=== PATIENT | male | born 1980 | race Caucasian/White ===

== ENCOUNTER 2016-10-15 03:19 | Inpatient (IN) | payer OTHER ==
[~2016-10-15] VITALS: Ht 175.3 cm; Wt 74.2 kg
[~2016-10-15 03:19] MED LIST: ADULT LOW DOSE81 MG PO; ALPRAZOLAM0.5 MG PO; CARBAMAZEPINE200 M1 PO; COREG 12.5MG12.5 MG PO; ELIQUIS 5 MG TAB5 MG PO; FIORICET TAB1 EA PO; HUMALOG100 UNIT/1 SQ; LANOXIN TAB0.125 MG PO; LANTUS100 UNIT/1 SQ; LASIX 40 MG TAB40 MG PO; LORCET 5-325 M1 EACH PO; LORCET HD 10-31 EACH PO; MAALOX PLUS 3030 ML PO; NEURONTIN 400400 MG PO; NORVASC 5 MG TAB5 MG PO; POTASSIUM CHLO10 MEQ PO; POTASSIUM CHLO20 ME1 PO; PROTONIX40 MG PO; PROVENTIL HFA 61 INH INH; TOPAMAX50 MG PO; TOPROL XL 25 MG25 MG PO; VITAMIN D50000 UNIT PO; ZANTAC150 MG PO; ZOFRAN4 MG PO
[2016-10-15 04:09] LABS: HEMOGLOBIN 10.2 gm/dl (14.0-17.5); RED BLOOD COUNT 3.24 M/UL (4.20-5.50); WHITE BLOOD COUNT 5.5 K/UL (4.5-11.0)
[2016-10-15 11:01] LABS: BUN/CREATININE RATIO 34 (0-10)
[2016-10-15 13:37] LABS: BUN/CREATININE RATIO 31 (0-10)
[2016-10-15 17:04] LABS: BUN/CREATININE RATIO 37 (0-10)
[2016-10-16 03:26] LABS: HEMOGLOBIN 8.5 gm/dl (14.0-17.5); WHITE BLOOD COUNT 4.7 K/UL (4.5-11.0)
[2016-10-16 03:33] LABS: RED BLOOD COUNT 2.86 M/UL (4.20-5.50)
[2016-10-16 04:02] LABS: BUN/CREATININE RATIO 26 (0-10)
[2016-10-17 06:37] LABS: BUN/CREATININE RATIO 25 (0-10)
[2016-10-17] MEDS ORDERED: PEPCID20 MG PO (16:20)
[2016-10-17] MEDS ORDERED: TEGRETOL200 MG PO (16:21)
[2017-05-08] MEDS ORDERED: AUGMENTIN 875-1 EACH PO (13:23)
== END 2016-10-17 17:23 | disposition home or self-care (01) | DRG 100 ==
LOC: ER1 03:19 → ZEROF 08:00 → CCU 15:50 → EDBD 10-17 17:23
PROVIDERS: Physician Assistant; ADMIT Family Medicine
DX: G40.909 Epilepsy, unspecified, not intractable, without status epilepticus (principal); G92 Toxic encephalopathy; J96.21 Acute and chronic respiratory failure with hypoxia; I50.33 Acute on chronic diastolic (congestive) heart failure; E13.10 Other specified diabetes mellitus with ketoacidosis without coma; I42.8 Other cardiomyopathies; T50.905A Adverse effect of unspecified drugs, medicaments and biological substances, initial encounter; N18.9 Chronic kidney disease, unspecified; I48.0 Paroxysmal atrial fibrillation; D63.8 Anemia in other chronic diseases classified elsewhere; I25.10 Atherosclerotic heart disease of native coronary artery without angina pectoris; B18.2 Chronic viral hepatitis C; I51.3 Intracardiac thrombosis, not elsewhere classified; G89.29 Other chronic pain; M54.9 Dorsalgia, unspecified; T14.8 Other injury of unspecified body region; W57.XXXA Bitten or stung by nonvenomous insect and other nonvenomous arthropods, initial encounter; F17.210 Nicotine dependence, cigarettes, uncomplicated; Z91.14 Patient's other noncompliance with medication regimen; Z95.3 Presence of xenogenic heart valve; Z87.898 Personal history of other specified conditions; Z79.01 Long term (current) use of anticoagulants; Z79.82 Long term (current) use of aspirin; Z79.4 Long term (current) use of insulin; Z79.899 Other long term (current) drug therapy; Z88.2 Allergy status to sulfonamides; Z91.041 Radiographic dye allergy status; Z90.49 Acquired absence of other specified parts of digestive tract; Z98.890 Other specified postprocedural states; Z82.49 Family history of ischemic heart disease and other diseases of the circulatory system; Z83.3 Family history of diabetes mellitus
CPT/HCPCS: 36415; 36556; 36600; 70450; 71010; 80048; 80053; 80156; 80307; 81001; 82009; 82550; 82553; 82803; 82962; 83605; 83690; 83874; 84484; 85025; 85610; 96361; 96372; 96374; 96375; 99285; C1751; J1815; J1940; J2060; J7030; J7050; Q0177

== ENCOUNTER 2016-10-19 15:04 | Emergency (ER) | payer OTHER ==
[~2016-10-19 15:04] MED LIST changes: +PEPCID20 MG PO; +TEGRETOL200 MG PO
[2016-10-19 16:17] LABS: HEMOGLOBIN 10.2 gm/dl (14.0-17.5); RED BLOOD COUNT 3.37 M/UL (4.20-5.50); WHITE BLOOD COUNT 6.6 K/UL (4.5-11.0)
[2016-10-19 16:44] LABS: BUN/CREATININE RATIO 27 (0-10)
[2017-05-08] MEDS ORDERED: AUGMENTIN 875-1 EACH PO (13:23)
== END 2016-10-20 00:24 ==
LOC: EDBD 15:04 → ER1 15:04
PROVIDERS: Emergency Medicine
DX: E13.10 Other specified diabetes mellitus with ketoacidosis without coma (principal); R65.10 Systemic inflammatory response syndrome (SIRS) of non-infectious origin without acute organ dysfunction; Z95.1 Presence of aortocoronary bypass graft
CPT/HCPCS: 36415; 71010; 80053; 81001; 82550; 82553; 82962; 83605; 83874; 83880; 84484; 85025; 87086; 96365; 96366; 96375; 99285; J7030

== ENCOUNTER 2016-10-24 16:59 | Inpatient (IN) | payer OTHER ==
[~2016-10-24] VITALS: Ht 175.3 cm; Wt 73.9 kg
[2016-10-24 18:49] LABS: BUN/CREATININE RATIO 22 (0-10)
[2016-10-24 18:59] LABS: HEMOGLOBIN 11.1 gm/dl (14.0-17.5); RED BLOOD COUNT 3.7 M/UL (4.20-5.50); WHITE BLOOD COUNT 15.9 K/UL (4.5-11.0)
[2016-10-25 00:20] LABS: BUN/CREATININE RATIO 23 (0-10)
[2016-10-25 04:06] LABS: BUN/CREATININE RATIO 25 (0-10)
[2016-10-25 07:28] LABS: RED BLOOD COUNT 3.28 M/UL (4.20-5.50)
[2016-10-25 07:30] LABS: HEMOGLOBIN 9.9 gm/dl (14.0-17.5)
[2016-10-25 07:34] LABS: BUN/CREATININE RATIO 23 (0-10)
[2016-10-25 10:20] LABS: BUN/CREATININE RATIO 22 (0-10)
[2016-10-25 14:51] LABS: BUN/CREATININE RATIO 23 (0-10)
[2016-10-25 18:47] LABS: BUN/CREATININE RATIO 23 (0-10)
[2016-10-25 22:35] LABS: BUN/CREATININE RATIO 20 (0-10)
[2016-10-26 02:48] LABS: BUN/CREATININE RATIO 18 (0-10)
[2016-10-26 05:07] LABS: HEMOGLOBIN 9.5 gm/dl (14.0-17.5); RED BLOOD COUNT 3.21 M/UL (4.20-5.50)
[2016-10-26 05:08] LABS: WHITE BLOOD COUNT 5.2 K/UL (4.5-11.0)
[2016-10-26 07:15] LABS: BUN/CREATININE RATIO 18 (0-10)
--- NOTE | 2016-10-26 14:48 | NUR ---
WALKED INTO PT ROOM AND HE WAS STANDING THERE WITH BLOOD POURING DOWN HIS LEG. I IMMEDIATELY ASSESSED HIS CENTRAL LINE. IT WAS INTACT AND STILL SUTURED IN PLACE. HE HAD GOTTEN UP AND PULLED THE CAP OFF THE END OF THE CENTRAL LINE. I REPLACED THE CAP AND DID A STERILE DRESSING CHANGE OF THE SITE. THE SITE STILL DRAWS BLOOD AND FLUSHES WELL. THE SUTURES REMAIN INTACT.
[2016-10-26 16:13] LABS: BUN/CREATININE RATIO 22 (0-10)
[2016-10-27 06:01] LABS: HEMOGLOBIN 9.9 gm/dl (14.0-17.5); RED BLOOD COUNT 3.32 M/UL (4.20-5.50); WHITE BLOOD COUNT 4.4 K/UL (4.5-11.0)
[2016-10-27 06:23] LABS: BUN/CREATININE RATIO 19 (0-10)
[2016-10-28 07:27] LABS: BUN/CREATININE RATIO 26 (0-10)
[2017-05-08] MEDS ORDERED: AUGMENTIN 875-1 EACH PO (13:23)
== END 2016-10-28 12:24 | disposition home or self-care (01) | DRG 871 ==
LOC: ER1 16:59 → CCU 20:01 → M/S 20:01 → ZEROF 20:01 → CCU 22:55 → M/S 10-26 11:58 → EDBD 10-28 12:24 → M/S 10-28 12:24
PROVIDERS: Emergency Medicine; Family Medicine; Internal Medicine Infectious Disease; ADMIT Internal Medicine
PROC: 5A2204Z Restoration of Cardiac Rhythm, Single (ICD-10-PCS; principal; 2016-10-24)
PROC: 06HM33Z Insertion of Infusion Device into Right Femoral Vein, Percutaneous Approach (ICD-10-PCS; 2016-10-25)
DX: A41.9 Sepsis, unspecified organism (principal); G92 Toxic encephalopathy; E10.10 Type 1 diabetes mellitus with ketoacidosis without coma; N17.9 Acute kidney failure, unspecified; I47.1 Supraventricular tachycardia; J96.11 Chronic respiratory failure with hypoxia; I42.0 Dilated cardiomyopathy; E87.1 Hypo-osmolality and hyponatremia; T50.905A Adverse effect of unspecified drugs, medicaments and biological substances, initial encounter; I48.0 Paroxysmal atrial fibrillation; G40.909 Epilepsy, unspecified, not intractable, without status epilepticus; E87.5 Hyperkalemia; D64.9 Anemia, unspecified; E86.0 Dehydration; B18.2 Chronic viral hepatitis C; Z95.2 Presence of prosthetic heart valve; Z87.891 Personal history of nicotine dependence; Z91.14 Patient's other noncompliance with medication regimen; Z91.11 Patient's noncompliance with dietary regimen; Z87.898 Personal history of other specified conditions; Z79.01 Long term (current) use of anticoagulants; Z79.82 Long term (current) use of aspirin; Z79.4 Long term (current) use of insulin; Z79.899 Other long term (current) drug therapy; Z88.6 Allergy status to analgesic agent; Z88.2 Allergy status to sulfonamides; Z90.49 Acquired absence of other specified parts of digestive tract; Z98.890 Other specified postprocedural states
CPT/HCPCS: ECHO; 36556; 70450; 71010; 71250; 80048; 80053; 80202; 80307; 81001; 82009; 82803; 82962; 83036; 83605; 83690; 83735; 83880; 84443; 84484; 85025; 85027; 85610; 85730; 87040; 87086; 92960; 93005; 93306; 94640; 94664; 96372; 96374; 96375; 99291; C1751; J0153; J1580; J1815; J3370; J7030; J7050; J7070

== ENCOUNTER 2016-11-02 14:20 | Emergency (ER) | payer OTHER ==
[2016-11-02 19:01] LABS: HEMOGLOBIN 10.1 gm/dl (14.0-17.5); RED BLOOD COUNT 3.36 M/UL (4.20-5.50); WHITE BLOOD COUNT 10.7 K/UL (4.5-11.0)
[2017-05-08] MEDS ORDERED: AUGMENTIN 875-1 EACH PO (13:23)
== END 2016-11-02 22:30 | disposition short-term general hospital (02) ==
LOC: ER1 14:20 → EDBD 14:20 → ER1 22:30
PROVIDERS: Emergency Medicine
DX: E10.10 Type 1 diabetes mellitus with ketoacidosis without coma (principal); E10.22 Type 1 diabetes mellitus with diabetic chronic kidney disease; N18.9 Chronic kidney disease, unspecified; D64.9 Anemia, unspecified; F19.90 Other psychoactive substance use, unspecified, uncomplicated; I48.91 Unspecified atrial fibrillation; E10.9 Type 1 diabetes mellitus without complications; B19.20 Unspecified viral hepatitis C without hepatic coma; F17.200 Nicotine dependence, unspecified, uncomplicated; Z91.14 Patient's other noncompliance with medication regimen; Z95.2 Presence of prosthetic heart valve; Z90.49 Acquired absence of other specified parts of digestive tract
CPT/HCPCS: 36415; 36600; 71010; 80048; 80053; 82009; 82550; 82553; 82803; 82962; 83605; 83874; 84484; 85025; 87040; 87077; 87186; 96372; 99285; C1751; J1815; J7030; J7050

== ENCOUNTER 2016-11-09 14:02 | Inpatient (IN) | payer OTHER ==
[~2016-11-09] VITALS: Ht 175.3 cm; Wt 90.7 kg
[2016-11-09 15:30] LABS: HEMOGLOBIN 9.3 gm/dl (14.0-17.5); RED BLOOD COUNT 3.17 M/UL (4.20-5.50); WHITE BLOOD COUNT 14.7 K/UL (4.5-11.0)
[2016-11-10 12:52] LABS: BUN/CREATININE RATIO 23 (0-10)
[2016-11-10 16:38] LABS: BUN/CREATININE RATIO 21 (0-10)
[2016-11-10 20:52] LABS: BUN/CREATININE RATIO 20 (0-10)
[2016-11-11 04:18] LABS: HEMOGLOBIN 8.7 gm/dl (14.0-17.5); RED BLOOD COUNT 2.96 M/UL (4.20-5.50)
[2016-11-11 04:20] LABS: WHITE BLOOD COUNT 5.1 K/UL (4.5-11.0)
[2016-11-11 04:34] LABS: BUN/CREATININE RATIO 18 (0-10)
[2016-11-11 08:23] LABS: BUN/CREATININE RATIO 17 (0-10)
[2016-11-11 12:44] LABS: BUN/CREATININE RATIO 16 (0-10)
[2016-11-11 16:11] LABS: BUN/CREATININE RATIO 13 (0-10)
[2017-05-08] MEDS ORDERED: AUGMENTIN 875-1 EACH PO (13:23)
== END 2016-11-11 19:00 | disposition home or self-care (01) | DRG 637 ==
LOC: ER1 14:02 → ZEROF 16:44 → CCU 16:44 → EDBD 11-11 19:00 → CCU 11-11 19:00
PROVIDERS: Emergency Medicine; Internal Medicine; ADMIT Internal Medicine Infectious Disease
PROC: 05HN33Z Insertion of Infusion Device into Left Internal Jugular Vein, Percutaneous Approach (ICD-10-PCS; principal; 2016-11-11)
PROC: B544ZZA Ultrasonography of Left Jugular Veins, Guidance (ICD-10-PCS; principal; 2016-11-11)
DX: E10.10 Type 1 diabetes mellitus with ketoacidosis without coma (principal); G93.41 Metabolic encephalopathy; J18.9 Pneumonia, unspecified organism; N17.9 Acute kidney failure, unspecified; I42.8 Other cardiomyopathies; Z91.14 Patient's other noncompliance with medication regimen; I48.0 Paroxysmal atrial fibrillation; F17.210 Nicotine dependence, cigarettes, uncomplicated; G40.909 Epilepsy, unspecified, not intractable, without status epilepticus; Z86.718 Personal history of other venous thrombosis and embolism; Z95.2 Presence of prosthetic heart valve; Z79.4 Long term (current) use of insulin; Z88.2 Allergy status to sulfonamides; Z88.8 Allergy status to other drugs, medicaments and biological substances; Z79.82 Long term (current) use of aspirin; Z79.899 Other long term (current) drug therapy; D63.8 Anemia in other chronic diseases classified elsewhere; Z86.19 Personal history of other infectious and parasitic diseases; Z82.49 Family history of ischemic heart disease and other diseases of the circulatory system; Z83.3 Family history of diabetes mellitus; Z87.898 Personal history of other specified conditions
CPT/HCPCS: 36415; 36600; 71010; 80048; 80053; 80307; 82009; 82550; 82553; 82803; 82962; 83605; 83690; 83874; 84484; 85025; 85027; 85610; 85730; 87040; 93005; 96361; 96365; 96372; 96375; 99291; C1751; J0696; J1815; J2543; J3370; J7050

== ENCOUNTER 2016-11-17 00:14 | Inpatient (IN) | payer OTHER ==
[~2016-11-17] VITALS: Ht 175.3 cm; Wt 90.7 kg
[2016-11-17 02:05] LABS: HEMOGLOBIN 11.5 gm/dl (14.0-17.5); RED BLOOD COUNT 3.84 M/UL (4.20-5.50); WHITE BLOOD COUNT 11.1 K/UL (4.5-11.0)
[2016-11-17 02:55] LABS: BUN/CREATININE RATIO 18 (0-10)
[2016-11-17] MEDS ORDERED: NASONEX17 GM (06:27)
[2016-11-17 08:13] LABS: BUN/CREATININE RATIO 22 (0-10)
[2016-11-17 10:47] LABS: BUN/CREATININE RATIO 22 (0-10)
[2016-11-17 14:04] LABS: BUN/CREATININE RATIO 21 (0-10)
[2016-11-17 18:35] LABS: BUN/CREATININE RATIO 21 (0-10)
[2016-11-17 22:19] LABS: BUN/CREATININE RATIO 20 (0-10)
[2016-11-18 04:09] LABS: HEMOGLOBIN 9.6 gm/dl (14.0-17.5); RED BLOOD COUNT 3.34 M/UL (4.20-5.50); WHITE BLOOD COUNT 3.8 K/UL (4.5-11.0)
[2016-11-18 04:38] LABS: BUN/CREATININE RATIO 19 (0-10)
[2016-11-19 04:19] LABS: HEMOGLOBIN 10.4 gm/dl (14.0-17.5); RED BLOOD COUNT 3.64 M/UL (4.20-5.50); WHITE BLOOD COUNT 3.9 K/UL (4.5-11.0)
[2016-11-19 04:30] LABS: BUN/CREATININE RATIO 16 (0-10)
[2016-11-20 04:57] LABS: HEMOGLOBIN 9.7 gm/dl (14.0-17.5); RED BLOOD COUNT 3.4 M/UL (4.20-5.50)
[2016-11-20 05:07] LABS: WHITE BLOOD COUNT 2.8 K/UL (4.5-11.0)
[2016-11-20 05:14] LABS: BUN/CREATININE RATIO 19 (0-10)
[2016-11-21 09:43] LABS: HEMOGLOBIN 9.7 gm/dl (14.0-17.5); RED BLOOD COUNT 3.37 M/UL (4.20-5.50)
[2016-11-21 10:20] LABS: BUN/CREATININE RATIO 31 (0-10)
[2016-11-21] MEDS ORDERED: LIDODERM PATCH 51 EA EXT (12:27)
[2017-05-08] MEDS ORDERED: AUGMENTIN 875-1 EACH PO (13:23)
== END 2016-11-21 19:30 | disposition home or self-care (01) | DRG 637 ==
LOC: ER1 00:14 → ZEROF 04:03 → CCU 04:03 → M/S 11-20 22:03 → EDBD 11-21 19:30 → M/S 11-21 19:30
PROVIDERS: Family Medicine; Internal Medicine; ADMIT Internal Medicine
PROC: 06HM33Z Insertion of Infusion Device into Right Femoral Vein, Percutaneous Approach (ICD-10-PCS; principal; 2016-11-17)
DX: E13.10 Other specified diabetes mellitus with ketoacidosis without coma (principal); G93.40 Encephalopathy, unspecified; I42.8 Other cardiomyopathies; R68.0 Hypothermia, not associated with low environmental temperature; E87.6 Hypokalemia; R00.0 Tachycardia, unspecified; I48.2 Chronic atrial fibrillation; G40.909 Epilepsy, unspecified, not intractable, without status epilepticus; Z95.810 Presence of automatic (implantable) cardiac defibrillator; Z95.2 Presence of prosthetic heart valve; Z79.01 Long term (current) use of anticoagulants; Z79.4 Long term (current) use of insulin; Z79.82 Long term (current) use of aspirin; Z79.899 Other long term (current) drug therapy
CPT/HCPCS: 36415; 36600; 71010; 80048; 80053; 80074; 82009; 82803; 82962; 83605; 84132; 85025; 85027; 87040; 87390; 93005; 96361; 96374; 99285; C1751; J7030

== ENCOUNTER 2016-11-23 23:04 | Inpatient (IN) | payer OTHER ==
[~2016-11-23] VITALS: Ht 175.3 cm; Wt 84.4 kg
[~2016-11-23 23:04] MED LIST changes: +LIDODERM PATCH 51 EA EXT; +NASONEX17 GM
[2016-11-24 02:59] LABS: HEMOGLOBIN 10.1 gm/dl (14.0-17.5); RED BLOOD COUNT 3.54 M/UL (4.20-5.50)
[2016-11-24 14:23] LABS: BUN/CREATININE RATIO 28 (0-10)
[2016-11-24 20:44] LABS: BUN/CREATININE RATIO 29 (0-10)
[2016-11-25 00:36] LABS: BUN/CREATININE RATIO 25 (0-10)
[2016-11-25 04:09] LABS: HEMOGLOBIN 9.8 gm/dl (14.0-17.5); RED BLOOD COUNT 3.44 M/UL (4.20-5.50)
[2016-11-25 04:14] LABS: WHITE BLOOD COUNT 6.6 K/UL (4.5-11.0)
[2016-11-25 04:35] LABS: BUN/CREATININE RATIO 26 (0-10)
[2016-11-25 10:57] LABS: BUN/CREATININE RATIO 22 (0-10)
[2016-11-25 15:49] LABS: BUN/CREATININE RATIO 20 (0-10)
[2016-11-26 04:44] LABS: HEMOGLOBIN 8.7 gm/dl (14.0-17.5); RED BLOOD COUNT 3.1 M/UL (4.20-5.50)
[2016-11-26 04:53] LABS: WHITE BLOOD COUNT 2.8 K/UL (4.5-11.0)
[2016-11-26 05:06] LABS: BUN/CREATININE RATIO 18 (0-10)
[2016-11-27 04:07] LABS: HEMOGLOBIN 8.5 gm/dl (14.0-17.5); RED BLOOD COUNT 2.99 M/UL (4.20-5.50); WHITE BLOOD COUNT 2.6 K/UL (4.5-11.0)
[2016-11-27 04:28] LABS: BUN/CREATININE RATIO 11 (0-10)
[2017-05-08] MEDS ORDERED: AUGMENTIN 875-1 EACH PO (13:23)
== END 2016-11-27 11:37 | disposition home or self-care (01) | DRG 637 ==
LOC: ER1 23:04 → ZEROF 11-24 04:23 → CCU 11-24 09:57 → EDBD 11-27 11:37
PROVIDERS: Internal Medicine; Student in an Organized Health Care Education/Training Program; ADMIT Family Medicine
PROC: 05HM33Z Insertion of Infusion Device into Right Internal Jugular Vein, Percutaneous Approach (ICD-10-PCS; principal; 2016-11-24)
PROC: B543ZZA Ultrasonography of Right Jugular Veins, Guidance (ICD-10-PCS; 2016-11-24)
DX: E10.10 Type 1 diabetes mellitus with ketoacidosis without coma (principal); G93.40 Encephalopathy, unspecified; I42.9 Cardiomyopathy, unspecified; N17.9 Acute kidney failure, unspecified; E87.1 Hypo-osmolality and hyponatremia; I38 Endocarditis, valve unspecified; F19.10 Other psychoactive substance abuse, uncomplicated; Z91.19 Patient's noncompliance with other medical treatment and regimen; Z95.2 Presence of prosthetic heart valve; R00.0 Tachycardia, unspecified; G40.909 Epilepsy, unspecified, not intractable, without status epilepticus; Z86.718 Personal history of other venous thrombosis and embolism; I48.0 Paroxysmal atrial fibrillation; B18.2 Chronic viral hepatitis C; Z90.49 Acquired absence of other specified parts of digestive tract; Z98.890 Other specified postprocedural states; Z88.2 Allergy status to sulfonamides; F17.210 Nicotine dependence, cigarettes, uncomplicated; Z83.3 Family history of diabetes mellitus; N18.9 Chronic kidney disease, unspecified; E87.5 Hyperkalemia; R79.89 Other specified abnormal findings of blood chemistry; R71.8 Other abnormality of red blood cells; D72.829 Elevated white blood cell count, unspecified; I87.2 Venous insufficiency (chronic) (peripheral); Z82.49 Family history of ischemic heart disease and other diseases of the circulatory system; Z79.82 Long term (current) use of aspirin; Z79.899 Other long term (current) drug therapy; Z79.02 Long term (current) use of antithrombotics/antiplatelets; Z79.4 Long term (current) use of insulin; F32.9 Major depressive disorder, single episode, unspecified
CPT/HCPCS: 36415; 36600; 51702; 71010; 80048; 80053; 80202; 80307; 81001; 82009; 82550; 82553; 82803; 82962; 83690; 83735; 83874; 84100; 84484; 85025; 85027; 85610; 85730; 87040; 87390; 93005; 94640; 94664; 96361; 96372; 96374; 99285; C1751; C9113; J1815; J2001; J2405; J3370; J7030; J7050; J7070

== ENCOUNTER 2016-11-27 13:05 | Emergency (ER) | payer OTHER ==
[2016-11-27 13:34] LABS: RED BLOOD COUNT 3.52 M/UL (4.20-5.50); WHITE BLOOD COUNT 3.5 K/UL (4.5-11.0)
[2016-11-27 13:54] LABS: BUN/CREATININE RATIO 10 (0-10)
[2017-05-08] MEDS ORDERED: AUGMENTIN 875-1 EACH PO (13:23)
== END 2016-11-27 21:35 | disposition short-term general hospital (02) ==
LOC: EDBD 13:05 → ER1 13:05
PROVIDERS: Emergency Medicine
DX: J18.9 Pneumonia, unspecified organism (principal); R41.82 Altered mental status, unspecified; E11.9 Type 2 diabetes mellitus without complications; Z88.2 Allergy status to sulfonamides
CPT/HCPCS: 36415; 36600; 70450; 71010; 80053; 80307; 82550; 82553; 82803; 82962; 83605; 83690; 83874; 83880; 84484; 85025; 85379; 87040; 93005; 96365; 96366; 96367; 96375; 99285; G0480; J1940; J1956; J3370; J7050

== ENCOUNTER 2016-12-07 11:42 | Emergency (ER) | payer OTHER ==
[2016-12-07 12:12] LABS: HEMOGLOBIN 8.3 gm/dl (14.0-17.5); RED BLOOD COUNT 2.89 M/UL (4.20-5.50); WHITE BLOOD COUNT 4.4 K/UL (4.5-11.0)
[2016-12-07 12:31] LABS: BUN/CREATININE RATIO 20 (0-10)
[2017-05-08] MEDS ORDERED: AUGMENTIN 875-1 EACH PO (13:23)
== END 2016-12-07 14:00 | disposition left against medical advice (07) ==
LOC: EDBD 11:42 → ER1 11:42
PROVIDERS: Emergency Medicine
DX: E11.65 Type 2 diabetes mellitus with hyperglycemia (principal); Z86.79 Personal history of other diseases of the circulatory system
CPT/HCPCS: 36415; 36600; 71010; 80053; 82009; 82803; 82962; 83690; 83880; 84484; 85025; 85610; 85730; 96360; 96361; 99285

== ENCOUNTER 2016-12-08 22:19 | Inpatient (IN) | payer OTHER ==
[~2016-12-08] VITALS: Ht 175.3 cm; Wt 81.6 kg
[2016-12-09 02:10] LABS: HEMOGLOBIN 9.3 gm/dl (14.0-17.5); RED BLOOD COUNT 3.2 M/UL (4.20-5.50); WHITE BLOOD COUNT 5.7 K/UL (4.5-11.0)
[2016-12-09 02:21] LABS: BUN/CREATININE RATIO 24 (0-10)
[2016-12-09 07:59] LABS: HEMOGLOBIN 8.4 gm/dl (14.0-17.5); RED BLOOD COUNT 2.96 M/UL (4.20-5.50); WHITE BLOOD COUNT 6.2 K/UL (4.5-11.0)
[2016-12-09 08:24] LABS: BUN/CREATININE RATIO 24 (0-10)
[2016-12-09 11:45] LABS: BUN/CREATININE RATIO 23 (0-10)
[2016-12-09 18:32] LABS: HEMOGLOBIN 8.1 gm/dl (14.0-17.5)
[2016-12-09 18:58] LABS: BUN/CREATININE RATIO 19 (0-10)
[2016-12-10 04:17] LABS: HEMOGLOBIN 8.1 gm/dl (14.0-17.5); RED BLOOD COUNT 2.86 M/UL (4.20-5.50); WHITE BLOOD COUNT 3.7 K/UL (4.5-11.0)
[2016-12-10 04:49] LABS: BUN/CREATININE RATIO 13 (0-10)
[2016-12-10 16:07] LABS: BUN/CREATININE RATIO 13 (0-10)
[2016-12-11 06:06] LABS: HEMOGLOBIN 8.8 gm/dl (14.0-17.5); RED BLOOD COUNT 3.05 M/UL (4.20-5.50); WHITE BLOOD COUNT 4.2 K/UL (4.5-11.0)
[2016-12-11 06:23] LABS: BUN/CREATININE RATIO 16 (0-10)
[2016-12-13 07:02] LABS: BUN/CREATININE RATIO 23 (0-10)
[2016-12-14 05:43] LABS: HEMOGLOBIN 9.3 gm/dl (14.0-17.5); RED BLOOD COUNT 3.33 M/UL (4.20-5.50)
[2016-12-14 06:02] LABS: BUN/CREATININE RATIO 22 (0-10)
[2016-12-14] MEDS ORDERED: ZESTRIL5 MG PO (06:23)
[2017-05-08] MEDS ORDERED: AUGMENTIN 875-1 EACH PO (13:23)
== END 2016-12-14 14:26 | disposition home or self-care (01) | DRG 637 ==
LOC: ER1 22:19 → ZEROF 12-09 05:02 → CCU 12-09 07:00 → M/S 12-10 22:30 → EDBD 12-14 14:26
PROVIDERS: Emergency Medicine; Internal Medicine; ADMIT Internal Medicine
PROC: 02HV33Z Insertion of Infusion Device into Superior Vena Cava, Percutaneous Approach (ICD-10-PCS; principal; 2016-12-09)
DX: E10.10 Type 1 diabetes mellitus with ketoacidosis without coma (principal); G92 Toxic encephalopathy; I42.8 Other cardiomyopathies; E86.0 Dehydration; D64.89 Other specified anemias; I48.0 Paroxysmal atrial fibrillation; B18.2 Chronic viral hepatitis C; G40.909 Epilepsy, unspecified, not intractable, without status epilepticus; E87.6 Hypokalemia; E10.40 Type 1 diabetes mellitus with diabetic neuropathy, unspecified; I45.10 Unspecified right bundle-branch block; F19.10 Other psychoactive substance abuse, uncomplicated; Z95.2 Presence of prosthetic heart valve; Z88.2 Allergy status to sulfonamides; Z86.718 Personal history of other venous thrombosis and embolism; Z91.14 Patient's other noncompliance with medication regimen
CPT/HCPCS: 36415; 36600; 71010; 80048; 80053; 80061; 80299; 80307; 81001; 82009; 82803; 82962; 83036; 83690; 83735; 84484; 85014; 85018; 85025; 85027; 87086; 93005; 96361; 96374; 96375; 99291; G0480; J0360; J1815; J2001; J7030; J7050

== ENCOUNTER 2016-12-17 12:31 | Inpatient (IN) | payer OTHER ==
[~2016-12-17] VITALS: Ht 175.3 cm; Wt 68.3 kg
[~2016-12-17 12:31] MED LIST changes: +ZESTRIL5 MG PO
[2016-12-17 13:30] LABS: HEMOGLOBIN 9.9 gm/dl (14.0-17.5); RED BLOOD COUNT 3.54 M/UL (4.20-5.50); WHITE BLOOD COUNT 10.5 K/UL (4.5-11.0)
[2016-12-17 13:49] LABS: BUN/CREATININE RATIO 20 (0-10)
[2016-12-17 16:30] LABS: BUN/CREATININE RATIO 20 (0-10)
[2016-12-17 18:40] LABS: BUN/CREATININE RATIO 19 (0-10)
[2016-12-17 22:44] LABS: BUN/CREATININE RATIO 22 (0-10)
[2016-12-18 02:09] LABS: HEMOGLOBIN 9.6 gm/dl (14.0-17.5); RED BLOOD COUNT 3.45 M/UL (4.20-5.50); WHITE BLOOD COUNT 7.1 K/UL (4.5-11.0)
[2016-12-18 02:26] LABS: BUN/CREATININE RATIO 21 (0-10)
[2016-12-18 06:32] LABS: ACINETOBACTER BAUMANNII Not Detected (Negative); CANDIDA ALBICANS Not Detected (Negative); CANDIDA KRUSEI Not Detected (Negative); CANDIDA TROPICALIS Not Detected (Negative); ESCHERICHIA COLI Not Detected (Negative); HAEMOPHILUS INFLUENZAE Not Detected (Negative); KLEBSIELLA OXYTOCA Not Detected (Negative); KPC-CARBAPENEM-RESISTANCE GENE Not Detected (Negative); PROTEUS Not Detected (Negative); PSEUDOMONAS AERUGINOSA Not Detected (Negative); SERRATIA MARCESANS Not Detected (Negative); STAPHYLOCOCCUS AUREUS Not Detected (Negative); STREP AGALACTIAE (GROUP B) Not Detected (Negative); STREP PYOGENES (GROUP A) Not Detected (Negative); STREPTOCOCCUS Not Detected (Negative)
[2016-12-18 09:17] LABS: vanA/B (VANCOMYCIN RESIST GENE DETECTED (Negative)
[2016-12-18 09:18] LABS: ENTEROCOCCUS DETECTED (Negative); KLEBSIELLA PNEUMONIAE DETECTED (Negative); STAPHYLOCOCCUS DETECTED (Negative)
[2016-12-18 09:22] LABS: mecA (METHICILLIN RESIST GENE DETECTED (Negative)
[2016-12-18 10:29] LABS: BUN/CREATININE RATIO 18 (0-10)
[2016-12-18 14:41] LABS: BUN/CREATININE RATIO 18 (0-10)
[2016-12-18 20:25] LABS: BUN/CREATININE RATIO 16 (0-10)
[2016-12-19 01:00] LABS: BUN/CREATININE RATIO 14 (0-10)
[2016-12-19 04:54] LABS: HEMOGLOBIN 9.8 gm/dl (14.0-17.5); RED BLOOD COUNT 3.51 M/UL (4.20-5.50)
[2016-12-19 04:55] LABS: WHITE BLOOD COUNT 3.7 K/UL (4.5-11.0)
[2016-12-19 05:15] LABS: BUN/CREATININE RATIO 13 (0-10)
[2016-12-19 16:46] LABS: BUN/CREATININE RATIO 15 (0-10)
[2016-12-20 08:03] LABS: BUN/CREATININE RATIO 19 (0-10)
[2016-12-20 08:12] LABS: HEMOGLOBIN 11.2 gm/dl (14.0-17.5); WHITE BLOOD COUNT 4.4 K/UL (4.5-11.0)
[2016-12-20 08:14] LABS: RED BLOOD COUNT 3.93 M/UL (4.20-5.50)
[2016-12-20 13:19] LABS: BUN/CREATININE RATIO 19 (0-10)
[2016-12-20 20:28] LABS: BUN/CREATININE RATIO 18 (0-10)
[2016-12-21 05:12] LABS: HEMOGLOBIN 10.9 gm/dl (14.0-17.5); RED BLOOD COUNT 4.02 M/UL (4.20-5.50); WHITE BLOOD COUNT 3.3 K/UL (4.5-11.0)
[2016-12-21 05:43] LABS: BUN/CREATININE RATIO 19 (0-10)
[2016-12-21 15:59] LABS: BUN/CREATININE RATIO 14 (0-10)
[2016-12-21 21:22] LABS: BUN/CREATININE RATIO 17 (0-10)
[2016-12-22 03:16] LABS: HEMOGLOBIN 10.5 gm/dl (14.0-17.5); RED BLOOD COUNT 3.74 M/UL (4.20-5.50); WHITE BLOOD COUNT 4.1 K/UL (4.5-11.0)
[2016-12-22 03:30] LABS: BUN/CREATININE RATIO 19 (0-10)
[2016-12-22 10:01] LABS: BUN/CREATININE RATIO 16 (0-10)
[2016-12-23 05:10] LABS: HEMOGLOBIN 10.8 gm/dl (14.0-17.5); RED BLOOD COUNT 3.92 M/UL (4.20-5.50); WHITE BLOOD COUNT 4.5 K/UL (4.5-11.0)
[2016-12-23 05:15] LABS: BUN/CREATININE RATIO 20 (0-10)
[2017-05-08] MEDS ORDERED: AUGMENTIN 875-1 EACH PO (13:23)
== END 2016-12-23 14:20 | disposition left against medical advice (07) | DRG 637 ==
LOC: ER1 12:31 → EDBD 12:31 → CCU 14:17 → ZEROF 14:17 → CCU 15:40 → ZEROF 12-18 22:28 → CCU 12-18 22:28
PROVIDERS: Family Medicine; Internal Medicine; ADMIT Internal Medicine Infectious Disease
PROC: B246ZZ4 Ultrasonography of Right and Left Heart, Transesophageal (ICD-10-PCS; principal; 2016-12-20)
DX: E10.10 Type 1 diabetes mellitus with ketoacidosis without coma (principal); G93.40 Encephalopathy, unspecified; N17.9 Acute kidney failure, unspecified; I42.9 Cardiomyopathy, unspecified; Q21.1 Atrial septal defect; D47.3 Essential (hemorrhagic) thrombocythemia; E87.5 Hyperkalemia; E86.0 Dehydration; I48.0 Paroxysmal atrial fibrillation; G40.909 Epilepsy, unspecified, not intractable, without status epilepticus; B18.2 Chronic viral hepatitis C; F17.210 Nicotine dependence, cigarettes, uncomplicated; Z91.14 Patient's other noncompliance with medication regimen; D64.9 Anemia, unspecified; F19.10 Other psychoactive substance abuse, uncomplicated; Z95.2 Presence of prosthetic heart valve; Z87.898 Personal history of other specified conditions; Z86.718 Personal history of other venous thrombosis and embolism; Z86.79 Personal history of other diseases of the circulatory system; Z83.3 Family history of diabetes mellitus; Z79.01 Long term (current) use of anticoagulants; Z79.4 Long term (current) use of insulin; Z88.2 Allergy status to sulfonamides; Z88.8 Allergy status to other drugs, medicaments and biological substances; Z79.82 Long term (current) use of aspirin; Z79.899 Other long term (current) drug therapy
CPT/HCPCS: ECHO; 36415; 36600; 71010; 80048; 80053; 80202; 80307; 81001; 82009; 82550; 82553; 82803; 82962; 83605; 83735; 83874; 84484; 85025; 85027; 86140; 87040; 87077; 87150; 87186; 93005; 93306; 93312; 93320; 96361; 96374; 99285; J0696; J1815; J2248; J3370; J7030; J7050; J7070

== ENCOUNTER 2016-12-25 07:51 | Inpatient (IN) | payer OTHER ==
[~2016-12-25] VITALS: Ht 175.3 cm; Wt 78.0 kg
[2016-12-25 08:50] LABS: HEMOGLOBIN 11.7 gm/dl (14.0-17.5); RED BLOOD COUNT 4.17 M/UL (4.20-5.50)
[2016-12-25 08:51] LABS: WHITE BLOOD COUNT 10.8 K/UL (4.5-11.0)
[2016-12-25 13:14] LABS: BUN/CREATININE RATIO 25 (0-10)
[2016-12-25 15:43] LABS: BUN/CREATININE RATIO 25 (0-10)
[2016-12-25 17:57] LABS: BUN/CREATININE RATIO 26 (0-10)
[2016-12-25 19:44] LABS: BUN/CREATININE RATIO 28 (0-10)
[2016-12-25 22:02] LABS: BUN/CREATININE RATIO 28 (0-10)
[2016-12-25 23:38] LABS: BUN/CREATININE RATIO 26 (0-10)
[2016-12-26 01:45] LABS: BUN/CREATININE RATIO 25 (0-10)
[2016-12-26 03:40] LABS: HEMOGLOBIN 8.6 gm/dl (14.0-17.5); RED BLOOD COUNT 3.13 M/UL (4.20-5.50)
[2016-12-26 03:53] LABS: BUN/CREATININE RATIO 27 (0-10)
[2016-12-26 05:39] LABS: BUN/CREATININE RATIO 27 (0-10)
[2016-12-26 07:23] LABS: BUN/CREATININE RATIO 24 (0-10)
[2016-12-27 06:27] LABS: BUN/CREATININE RATIO 19 (0-10)
[2016-12-28 05:05] LABS: BUN/CREATININE RATIO 23 (0-10)
[2017-05-08] MEDS ORDERED: AUGMENTIN 875-1 EACH PO (13:23)
== END 2016-12-28 18:19 | disposition home or self-care (01) | DRG 637 ==
LOC: ER1 07:51 → ZEROF 09:51 → MED SURG 4 09:51 → CCU 11:43 → MED SURG 4 12-26 16:12
PROVIDERS: Emergency Medicine; Physician Assistant; ADMIT Family Medicine
PROC: B543ZZA Ultrasonography of Right Jugular Veins, Guidance (ICD-10-PCS; principal; 2016-12-25)
PROC: 05HM33Z Insertion of Infusion Device into Right Internal Jugular Vein, Percutaneous Approach (ICD-10-PCS; principal; 2016-12-25)
DX: E10.10 Type 1 diabetes mellitus with ketoacidosis without coma (principal); G93.41 Metabolic encephalopathy; N17.9 Acute kidney failure, unspecified; I42.8 Other cardiomyopathies; E87.5 Hyperkalemia; I48.0 Paroxysmal atrial fibrillation; D64.9 Anemia, unspecified; D47.3 Essential (hemorrhagic) thrombocythemia; I10 Essential (primary) hypertension; G40.909 Epilepsy, unspecified, not intractable, without status epilepticus; F17.210 Nicotine dependence, cigarettes, uncomplicated; Z91.14 Patient's other noncompliance with medication regimen; Z87.898 Personal history of other specified conditions; Z95.4 Presence of other heart-valve replacement; Z86.19 Personal history of other infectious and parasitic diseases; Z88.2 Allergy status to sulfonamides; Z79.01 Long term (current) use of anticoagulants; Z79.899 Other long term (current) drug therapy; Z79.4 Long term (current) use of insulin; Z79.82 Long term (current) use of aspirin; Z83.3 Family history of diabetes mellitus; Z86.718 Personal history of other venous thrombosis and embolism; Z86.79 Personal history of other diseases of the circulatory system
CPT/HCPCS: 36415; 71010; 80048; 80053; 82009; 82800; 82962; 83735; 84100; 84484; 85025; 85027; 87040; 93005; 96374; 96375; 99291; C1751; C9113; J0610; J1815; J7030; J7050

== ENCOUNTER 2016-12-31 09:40 | Inpatient (IN) | payer OTHER ==
[~2016-12-31] VITALS: Ht 175.3 cm; Wt 72.6 kg
[2016-12-31 11:01] LABS: RED BLOOD COUNT 4.18 M/UL (4.20-5.50); WHITE BLOOD COUNT 9.2 K/UL (4.5-11.0)
[2016-12-31 11:02] LABS: HEMOGLOBIN 11.5 gm/dl (14.0-17.5)
[2016-12-31 11:34] LABS: BUN/CREATININE RATIO 22 (0-10)
[2016-12-31 15:02] LABS: BUN/CREATININE RATIO 26 (0-10)
[2016-12-31 19:28] LABS: BUN/CREATININE RATIO 26 (0-10)
[2016-12-31 23:13] LABS: BUN/CREATININE RATIO 28 (0-10)
[2017-01-01 03:41] LABS: BUN/CREATININE RATIO 28 (0-10)
[2017-01-01 03:55] LABS: HEMOGLOBIN 10.4 gm/dl (14.0-17.5); RED BLOOD COUNT 3.77 M/UL (4.20-5.50); WHITE BLOOD COUNT 5.6 K/UL (4.5-11.0)
[2017-01-01 15:21] LABS: BUN/CREATININE RATIO 24 (0-10)
[2017-01-01 19:59] LABS: BUN/CREATININE RATIO 26 (0-10)
[2017-01-01 23:17] LABS: BUN/CREATININE RATIO 25 (0-10)
[2017-01-02 03:24] LABS: HEMOGLOBIN 9.6 gm/dl (14.0-17.5); RED BLOOD COUNT 3.53 M/UL (4.20-5.50)
[2017-01-02 03:37] LABS: WHITE BLOOD COUNT 4.1 K/UL (4.5-11.0)
[2017-01-02 03:57] LABS: BUN/CREATININE RATIO 26 (0-10)
[2017-01-03 03:50] LABS: HEMOGLOBIN 9.4 gm/dl (14.0-17.5); RED BLOOD COUNT 3.42 M/UL (4.20-5.50); WHITE BLOOD COUNT 3.6 K/UL (4.5-11.0)
[2017-01-03 04:12] LABS: BUN/CREATININE RATIO 18 (0-10)
--- NOTE | 2017-01-04 18:05 | NUR ---
CURRENTLY PATIENT IS RESTING IN FOWLERS EATING. NO COMPLAINT OF PAIN. IV PATENT. HAD TO CHECK BLOOD PRESSURE MANUALLY TODAY; HE MUST TIGHTENING HIS ARM WITH WHEN THE MONITOR IS BEING USED MAKING IT HIGHER. CALL LIGHT WITH IN REACH. WILL CONTINUE TO MONITOR.
[2017-01-04 21:45] LABS: BUN/CREATININE RATIO 24 (0-10)
[2017-01-05 04:27] LABS: RED BLOOD COUNT 3.29 M/UL (4.20-5.50); WHITE BLOOD COUNT 4.3 K/UL (4.5-11.0)
[2017-01-05 04:51] LABS: BUN/CREATININE RATIO 23 (0-10)
[2017-01-06 07:07] LABS: HEMOGLOBIN 8.7 gm/dl (14.0-17.5); RED BLOOD COUNT 3.2 M/UL (4.20-5.50); WHITE BLOOD COUNT 3.9 K/UL (4.5-11.0)
[2017-01-06 07:19] LABS: BUN/CREATININE RATIO 29 (0-10)
--- NOTE | 2017-01-06 16:33 | NUR ---
01/06/17 1233: PATIENT IS DIAPHORETIC AND HAS EYES CLOSED. PATIENT IS MUMBLING. GLUCOSE IS READING LOW ON METER. ATTEMPTED TO PUSH D50 BUT IV WAS LOT. IV WAS OUT DUE TO INCREASED SWEATING. NURSE AND TWO OTHER NURSES ATTEMPTED TO GAIN IV ACCESS.NOTIFIED DR RAMÍREZ WHO GAVE ORDER FOR SURGERY CONSULT FOR CENTRAL LINE. DR. BROOKS ON FLOOR AT NURSES STATION AND STARTED CENTRAL LINE. PROCEDURE PERFORMED STERILE POSSIBLE. 2 AMPS D 50 GIVEN IV PER MD ORDER. ORDERS R B AND V. 1307: GLUCOSE 245 PATIENT IS ALERT AND ASKING FOR FOOD. 1553: PATIENT GLUCOSE 19 ON METER. PATIENT SWEATING AND DECREASED LOC. NOTIFIED DR RAMÍRZE. NEW ORDER NOTED FOR AMP D50 AND D50 @100 ML/HR. RB AND V 1619: GLUCOSE 181 PATIENT ASKING FOR JUICE AND PEANUT BUTTER CRACKERS.
[2017-01-08 06:23] LABS: BUN/CREATININE RATIO 30 (0-10)
[2017-01-09 06:39] LABS: BUN/CREATININE RATIO 34 (0-10)
[2017-01-10 05:29] LABS: BUN/CREATININE RATIO 36 (0-10)
[2017-01-11 06:14] LABS: BUN/CREATININE RATIO 25 (0-10)
[2017-01-12 06:58] LABS: BUN/CREATININE RATIO 26 (0-10)
[2017-01-13 05:30] LABS: HEMOGLOBIN 7.7 gm/dl (14.0-17.5); RED BLOOD COUNT 2.81 M/UL (4.20-5.50); WHITE BLOOD COUNT 3.7 K/UL (4.5-11.0)
[2017-01-13 05:44] LABS: BUN/CREATININE RATIO 29 (0-10)
[2017-01-14 04:07] LABS: HEMOGLOBIN 8.3 gm/dl (14.0-17.5); RED BLOOD COUNT 3.04 M/UL (4.20-5.50); WHITE BLOOD COUNT 4.1 K/UL (4.5-11.0)
[2017-01-14 04:37] LABS: BUN/CREATININE RATIO 28 (0-10)
[2017-01-15 05:10] LABS: RED BLOOD COUNT 2.93 M/UL (4.20-5.50); WHITE BLOOD COUNT 4.4 K/UL (4.5-11.0)
[2017-01-15 05:33] LABS: BUN/CREATININE RATIO 32 (0-10)
[2017-01-16 06:03] LABS: HEMOGLOBIN 7.3 gm/dl (14.0-17.5); WHITE BLOOD COUNT 4.2 K/UL (4.5-11.0)
[2017-01-16 06:05] LABS: RED BLOOD COUNT 2.61 M/UL (4.20-5.50)
[2017-01-16 06:27] LABS: BUN/CREATININE RATIO 31 (0-10)
[2017-01-17 06:47] LABS: HEMOGLOBIN 8.9 gm/dl (14.0-17.5)
[2017-01-17 06:56] LABS: RED BLOOD COUNT 3.29 M/UL (4.20-5.50)
[2017-01-17 07:09] LABS: BUN/CREATININE RATIO 34 (0-10)
[2017-01-18 04:48] LABS: HEMOGLOBIN 8.8 gm/dl (14.0-17.5); RED BLOOD COUNT 3.1 M/UL (4.20-5.50); WHITE BLOOD COUNT 3.8 K/UL (4.5-11.0)
[2017-01-18 05:08] LABS: BUN/CREATININE RATIO 34 (0-10)
[2017-01-18] MEDS ORDERED: LOTRISONE CREAM15 GM TOP (16:46)
[2017-01-18] MEDS ORDERED: INSULIN SYRING1 EA11 MC (16:52)
[2017-01-18] MEDS ORDERED: NIZORAL120 ML TP (16:53)
[2017-01-18] MEDS ORDERED: FERROUS SULFAT325 MG PO (16:54)
[2017-01-18] MEDS ORDERED: MULTIVITAMINS1 EAC1 PO (16:55)
[2017-05-08] MEDS ORDERED: AUGMENTIN 875-1 EACH PO (13:23)
== END 2017-01-18 18:40 | disposition home or self-care (01) | DRG 638 ==
LOC: ER1 09:40 → ZEROF 11:56 → CCU 11:56 → MED SURG 4 11:56 → CCU 13:36 → MED SURG 4 01-03 16:44
PROVIDERS: Internal Medicine; Internal Medicine Infectious Disease; Physician Assistant; ADMIT Internal Medicine
PROC: 06HM33Z Insertion of Infusion Device into Right Femoral Vein, Percutaneous Approach (ICD-10-PCS; principal; 2017-01-01)
PROC: 06HN33Z Insertion of Infusion Device into Left Femoral Vein, Percutaneous Approach (ICD-10-PCS; 2017-01-06)
PROC: 30233N1 Transfusion of Nonautologous Red Blood Cells into Peripheral Vein, Percutaneous Approach (ICD-10-PCS; 2017-01-16)
DX: E10.11 Type 1 diabetes mellitus with ketoacidosis with coma (principal); N17.9 Acute kidney failure, unspecified; I42.8 Other cardiomyopathies; E87.1 Hypo-osmolality and hyponatremia; E87.5 Hyperkalemia; D50.9 Iron deficiency anemia, unspecified; I48.0 Paroxysmal atrial fibrillation; G40.909 Epilepsy, unspecified, not intractable, without status epilepticus; E10.649 Type 1 diabetes mellitus with hypoglycemia without coma; I10 Essential (primary) hypertension; D47.3 Essential (hemorrhagic) thrombocythemia; E87.6 Hypokalemia; Z91.14 Patient's other noncompliance with medication regimen; B18.2 Chronic viral hepatitis C; D63.8 Anemia in other chronic diseases classified elsewhere; R60.9 Edema, unspecified; E83.39 Other disorders of phosphorus metabolism; L21.9 Seborrheic dermatitis, unspecified; R32 Unspecified urinary incontinence; R15.9 Full incontinence of feces; F17.200 Nicotine dependence, unspecified, uncomplicated; Z95.2 Presence of prosthetic heart valve; Z87.898 Personal history of other specified conditions; Z60.8 Other problems related to social environment; Z79.01 Long term (current) use of anticoagulants; Z79.82 Long term (current) use of aspirin; Z79.4 Long term (current) use of insulin; Z79.899 Other long term (current) drug therapy; Z88.2 Allergy status to sulfonamides; Z90.49 Acquired absence of other specified parts of digestive tract; Z98.890 Other specified postprocedural states; Z83.3 Family history of diabetes mellitus
CPT/HCPCS: 36415; 36430; 51702; 80048; 80053; 80074; 80307; 81001; 82009; 82550; 82553; 82607; 82728; 82803; 82947; 82962; 83540; 83550; 83605; 83735; 83874; 84100; 84132; 84484; 85025; 85027; 86850; 86900; 86901; 86920; 87040; 87390; 93005; 96374; 96375; 97116; 97530; 99291; C1751; C9113; J0610; J1756; J1815; J7030; J7050; P9016

== ENCOUNTER 2017-01-21 13:07 | Inpatient (IN) | payer OTHER ==
[~2017-01-21] VITALS: Ht 175.3 cm; Wt 72.6 kg
[~2017-01-21 13:07] MED LIST changes: +FERROUS SULFAT325 MG PO; +INSULIN SYRING1 EA11 MC; +LOTRISONE CREAM15 GM TOP; +MULTIVITAMINS1 EAC1 PO; +NIZORAL120 ML TP
[2017-01-21 15:19] LABS: BUN/CREATININE RATIO 21 (0-10)
[2017-01-21 15:20] LABS: RED BLOOD COUNT 3.84 M/UL (4.20-5.50)
[2017-01-21 15:32] LABS: HEMOGLOBIN 10.9 gm/dl (14.0-17.5)
[2017-01-21 15:33] LABS: WHITE BLOOD COUNT 9.8 K/UL (4.5-11.0)
[2017-01-21 23:36] LABS: BUN/CREATININE RATIO 23 (0-10)
--- NOTE | 2017-01-21 23:40 | NUR ---
CRITICAL CARBON DIOXIDE LEVEL RECIEVED, LEVEL TRENDING UPWARD FROM PEREVIOUS LAB VALUE RESULTED.
[2017-01-22 02:48] LABS: BUN/CREATININE RATIO 25 (0-10)
[2017-01-22 07:23] LABS: BUN/CREATININE RATIO 24 (0-10)
[2017-01-22 11:35] LABS: BUN/CREATININE RATIO 27 (0-10)
[2017-01-22 17:41] LABS: BUN/CREATININE RATIO 24 (0-10)
[2017-01-23 04:13] LABS: HEMOGLOBIN 9.9 gm/dl (14.0-17.5); RED BLOOD COUNT 3.57 M/UL (4.20-5.50)
[2017-01-23 04:14] LABS: WHITE BLOOD COUNT 4.9 K/UL (4.5-11.0)
[2017-01-23 04:30] LABS: BUN/CREATININE RATIO 19 (0-10)
[2017-01-24 03:58] LABS: HEMOGLOBIN 9.2 gm/dl (14.0-17.5); RED BLOOD COUNT 3.32 M/UL (4.20-5.50); WHITE BLOOD COUNT 3.8 K/UL (4.5-11.0)
[2017-01-24 04:17] LABS: BUN/CREATININE RATIO 21 (0-10)
[2017-01-25 05:10] LABS: HEMOGLOBIN 9.5 gm/dl (14.0-17.5); RED BLOOD COUNT 3.35 M/UL (4.20-5.50); WHITE BLOOD COUNT 3.4 K/UL (4.5-11.0)
[2017-01-25 05:24] LABS: BUN/CREATININE RATIO 23 (0-10)
[2017-01-26 04:13] LABS: HEMOGLOBIN 9.2 gm/dl (14.0-17.5); RED BLOOD COUNT 3.27 M/UL (4.20-5.50); WHITE BLOOD COUNT 3.2 K/UL (4.5-11.0)
[2017-01-26 04:28] LABS: BUN/CREATININE RATIO 25 (0-10)
[2017-01-30 06:55] LABS: BUN/CREATININE RATIO 40 (0-10)
[2017-02-02 05:03] LABS: HEMOGLOBIN 9.8 gm/dl (14.0-17.5)
[2017-02-02 08:51] LABS: BUN/CREATININE RATIO 31 (0-10)
[2017-02-02 17:05] LABS: BUN/CREATININE RATIO 29 (0-10)
[2017-05-08] MEDS ORDERED: AUGMENTIN 875-1 EACH PO (13:23)
== END 2017-02-03 17:00 | disposition home or self-care (01) | DRG 637 ==
LOC: ER1 13:07 → ZEROF 18:02 → CCU 18:02 → M/S 18:02 → CCU 22:42 → M/S 01-24 19:45
PROVIDERS: Emergency Medicine; Family Medicine; Legal Medicine; ADMIT Internal Medicine
DX: E10.10 Type 1 diabetes mellitus with ketoacidosis without coma (principal); G93.49 Other encephalopathy; T82.594A Other mechanical complication of infusion catheter, initial encounter; N17.9 Acute kidney failure, unspecified; E87.5 Hyperkalemia; M79.604 Pain in right leg; Z91.14 Patient's other noncompliance with medication regimen; I48.0 Paroxysmal atrial fibrillation; G40.909 Epilepsy, unspecified, not intractable, without status epilepticus; Y92.230 Patient room in hospital as the place of occurrence of the external cause; B19.20 Unspecified viral hepatitis C without hepatic coma; Z88.2 Allergy status to sulfonamides; Z87.898 Personal history of other specified conditions; Z79.4 Long term (current) use of insulin; Z79.01 Long term (current) use of anticoagulants; Z79.891 Long term (current) use of opiate analgesic; Z79.84 Long term (current) use of oral hypoglycemic drugs; Z79.899 Other long term (current) drug therapy; Z79.82 Long term (current) use of aspirin; Z95.2 Presence of prosthetic heart valve
CPT/HCPCS: 36415; 36600; 70450; 71010; 80048; 80053; 81001; 82009; 82803; 82947; 82962; 83605; 83690; 83735; 84100; 84484; 85014; 85018; 85025; 85027; 85610; 85730; 87040; 87086; 93005; 96361; 96374; 99285; J1650; J1815; J2001; J2270; J7030; J7050

== ENCOUNTER 2017-02-06 13:41 | Inpatient (IN) | payer OTHER ==
[~2017-02-06] VITALS: Ht 175.3 cm; Wt 72.6 kg
[2017-02-06 14:52] LABS: HEMOGLOBIN 10.5 gm/dl (14.0-17.5); RED BLOOD COUNT 3.74 M/UL (4.20-5.50); WHITE BLOOD COUNT 11.2 K/UL (4.5-11.0)
[2017-02-06 20:52] LABS: BUN/CREATININE RATIO 22 (0-10)
[2017-02-07 03:52] LABS: HEMOGLOBIN 9.2 gm/dl (14.0-17.5)
[2017-02-07 03:54] LABS: RED BLOOD COUNT 3.22 M/UL (4.20-5.50); WHITE BLOOD COUNT 5.6 K/UL (4.5-11.0)
[2017-02-07 04:16] LABS: BUN/CREATININE RATIO 24 (0-10)
[2017-02-07 11:02] LABS: ACINETOBACTER BAUMANNII Not Detected (Negative); CANDIDA ALBICANS Not Detected (Negative); CANDIDA KRUSEI Not Detected (Negative); CANDIDA TROPICALIS Not Detected (Negative); ENTEROCOCCUS Not Detected (Negative); ESCHERICHIA COLI Not Detected (Negative); HAEMOPHILUS INFLUENZAE Not Detected (Negative); KLEBSIELLA OXYTOCA Not Detected (Negative); KLEBSIELLA PNEUMONIAE Not Detected (Negative); KPC-CARBAPENEM-RESISTANCE GENE Not Detected (Negative); PROTEUS Not Detected (Negative); PSEUDOMONAS AERUGINOSA Not Detected (Negative); SERRATIA MARCESANS Not Detected (Negative); STAPHYLOCOCCUS AUREUS Not Detected (Negative); STREP AGALACTIAE (GROUP B) Not Detected (Negative); STREP PYOGENES (GROUP A) Not Detected (Negative); STREPTOCOCCUS Not Detected (Negative); vanA/B (VANCOMYCIN RESIST GENE Not Detected (Negative)
[2017-02-07 13:03] LABS: STAPHYLOCOCCUS DETECTED (Negative); mecA (METHICILLIN RESIST GENE DETECTED (Negative)
[2017-02-08 03:51] LABS: HEMOGLOBIN 9.2 gm/dl (14.0-17.5); RED BLOOD COUNT 3.35 M/UL (4.20-5.50)
[2017-02-08 03:58] LABS: WHITE BLOOD COUNT 3.9 K/UL (4.5-11.0)
[2017-02-08 04:17] LABS: BUN/CREATININE RATIO 19 (0-10)
[2017-02-09 04:04] LABS: HEMOGLOBIN 9.2 gm/dl (14.0-17.5); RED BLOOD COUNT 3.35 M/UL (4.20-5.50); WHITE BLOOD COUNT 3.7 K/UL (4.5-11.0)
[2017-02-09 04:24] LABS: BUN/CREATININE RATIO 20 (0-10)
[2017-02-10 05:36] LABS: BUN/CREATININE RATIO 18 (0-10)
[2017-02-10] MEDS ORDERED: NORVASC 5 MG TAB5 MG PO (19:15)
[2017-02-10] MEDS ORDERED: LISINOPRIL5 MG PO (19:16)
[2017-05-08] MEDS ORDERED: AUGMENTIN 875-1 EACH PO (13:23)
== END 2017-02-10 20:25 | disposition home or self-care (01) | DRG 638 ==
LOC: ER1 13:41 → CCU 17:20 → ZEROF 17:20 → CCU 18:51 → MED SURG 4 02-08 19:52
PROVIDERS: Emergency Medicine; ADMIT Internal Medicine
PROC: 06HN33Z Insertion of Infusion Device into Left Femoral Vein, Percutaneous Approach (ICD-10-PCS; principal; 2017-02-07)
DX: E10.10 Type 1 diabetes mellitus with ketoacidosis without coma (principal); I42.9 Cardiomyopathy, unspecified; Z91.14 Patient's other noncompliance with medication regimen; D64.9 Anemia, unspecified; I48.0 Paroxysmal atrial fibrillation; G40.909 Epilepsy, unspecified, not intractable, without status epilepticus; B19.20 Unspecified viral hepatitis C without hepatic coma; R06.2 Wheezing; L98.9 Disorder of the skin and subcutaneous tissue, unspecified; E83.39 Other disorders of phosphorus metabolism; F17.210 Nicotine dependence, cigarettes, uncomplicated; Z91.11 Patient's noncompliance with dietary regimen; Z95.2 Presence of prosthetic heart valve; Z79.4 Long term (current) use of insulin; Z83.3 Family history of diabetes mellitus; Z82.49 Family history of ischemic heart disease and other diseases of the circulatory system; Z79.899 Other long term (current) drug therapy; Z79.01 Long term (current) use of anticoagulants; Z88.2 Allergy status to sulfonamides; Z88.8 Allergy status to other drugs, medicaments and biological substances; Z87.898 Personal history of other specified conditions
CPT/HCPCS: 36415; 71010; 80048; 80053; 81001; 82550; 82553; 82800; 82962; 83605; 83690; 83735; 83874; 83880; 84100; 84484; 85025; 85027; 85610; 85730; 87040; 87077; 87086; 87150; 87186; 94640; 94664; 96361; 96365; 96372; 96375; 99291; C1751; J0692; J1630; J2405; J2543; J3370; J7030; J7050; J7070

== ENCOUNTER 2017-04-07 05:08 | Inpatient (IN) | payer OTHER ==
[~2017-04-07] VITALS: Ht 172.7 cm; Wt 87.1 kg
[~2017-04-07 05:08] MED LIST changes: +LISINOPRIL5 MG PO
[2017-04-07 06:19] LABS: HEMOGLOBIN 12.3 gm/dl (14.0-17.5); RED BLOOD COUNT 4.44 M/UL (4.20-5.50); WHITE BLOOD COUNT 11.6 K/UL (4.5-11.0)
[2017-04-07] MEDS ORDERED: LISINOPRIL20 MG PO (09:29)
[2017-04-07 23:23] LABS: ACINETOBACTER BAUMANNII Not Detected (Negative); CANDIDA ALBICANS Not Detected (Negative); CANDIDA KRUSEI Not Detected (Negative); CANDIDA TROPICALIS Not Detected (Negative); ENTEROCOCCUS Not Detected (Negative); ESCHERICHIA COLI Not Detected (Negative); HAEMOPHILUS INFLUENZAE Not Detected (Negative); KLEBSIELLA OXYTOCA Not Detected (Negative); KLEBSIELLA PNEUMONIAE Not Detected (Negative); KPC-CARBAPENEM-RESISTANCE GENE Not Detected (Negative); PROTEUS Not Detected (Negative); PSEUDOMONAS AERUGINOSA Not Detected (Negative); SERRATIA MARCESANS Not Detected (Negative); STAPHYLOCOCCUS AUREUS Not Detected (Negative); STREP AGALACTIAE (GROUP B) Not Detected (Negative); STREP PYOGENES (GROUP A) Not Detected (Negative); STREPTOCOCCUS Not Detected (Negative); vanA/B (VANCOMYCIN RESIST GENE Not Detected (Negative)
[2017-04-08 00:24] LABS: BUN/CREATININE RATIO 16 (0-10)
[2017-04-08 00:34] LABS: STAPHYLOCOCCUS DETECTED (Negative); mecA (METHICILLIN RESIST GENE DETECTED (Negative)
[2017-04-08 04:43] LABS: BUN/CREATININE RATIO 15 (0-10)
[2017-04-08 04:59] LABS: HEMOGLOBIN 9.7 gm/dl (14.0-17.5); RED BLOOD COUNT 3.46 M/UL (4.20-5.50); WHITE BLOOD COUNT 8.4 K/UL (4.5-11.0)
[2017-04-08 10:14] LABS: BUN/CREATININE RATIO 15 (0-10)
[2017-04-08 16:52] LABS: BUN/CREATININE RATIO 13 (0-10)
[2017-04-08 22:39] LABS: BUN/CREATININE RATIO 13 (0-10)
[2017-04-09 05:08] LABS: HEMOGLOBIN 10.7 gm/dl (14.0-17.5); RED BLOOD COUNT 3.96 M/UL (4.20-5.50); WHITE BLOOD COUNT 7.9 K/UL (4.5-11.0)
[2017-04-09 05:24] LABS: BUN/CREATININE RATIO 13 (0-10)
[2017-04-09 14:14] LABS: BUN/CREATININE RATIO 15 (0-10)
[2017-04-09 22:25] LABS: BUN/CREATININE RATIO 17 (0-10)
[2017-04-10 03:23] LABS: RED BLOOD COUNT 3.71 M/UL (4.20-5.50)
[2017-04-10 03:24] LABS: WHITE BLOOD COUNT 5.4 K/UL (4.5-11.0)
[2017-04-10 03:35] LABS: BUN/CREATININE RATIO 18 (0-10)
[2017-04-11 03:55] LABS: HEMOGLOBIN 9.3 gm/dl (14.0-17.5); RED BLOOD COUNT 3.46 M/UL (4.20-5.50); WHITE BLOOD COUNT 4.9 K/UL (4.5-11.0)
[2017-04-11 04:49] LABS: BUN/CREATININE RATIO 16 (0-10)
[2017-04-11 16:40] LABS: HEMOGLOBIN 9.8 gm/dl (14.0-17.5)
[2017-04-12 04:18] LABS: HEMOGLOBIN 9.5 gm/dl (14.0-17.5); RED BLOOD COUNT 3.45 M/UL (4.20-5.50); WHITE BLOOD COUNT 4.2 K/UL (4.5-11.0)
[2017-04-12 04:45] LABS: BUN/CREATININE RATIO 19 (0-10)
[2017-04-13 04:33] LABS: HEMOGLOBIN 9.4 gm/dl (14.0-17.5); RED BLOOD COUNT 3.54 M/UL (4.20-5.50); WHITE BLOOD COUNT 3.7 K/UL (4.5-11.0)
[2017-04-13 04:54] LABS: BUN/CREATININE RATIO 21 (0-10)
[2017-04-14 05:22] LABS: BUN/CREATININE RATIO 19 (0-10)
[2017-04-15 04:53] LABS: BUN/CREATININE RATIO 19 (0-10)
[2017-04-16 04:22] LABS: BUN/CREATININE RATIO 20 (0-10)
[2017-04-17 04:10] LABS: BUN/CREATININE RATIO 24 (0-10)
[2017-04-18 05:12] LABS: HEMOGLOBIN 9.2 gm/dl (14.0-17.5); RED BLOOD COUNT 3.37 M/UL (4.20-5.50)
[2017-04-18 05:35] LABS: BUN/CREATININE RATIO 24 (0-10)
[2017-04-23 06:04] LABS: HEMOGLOBIN 8.4 gm/dl (14.0-17.5); RED BLOOD COUNT 3.08 M/UL (4.20-5.50); WHITE BLOOD COUNT 7.6 K/UL (4.5-11.0)
[2017-04-23 06:20] LABS: BUN/CREATININE RATIO 24 (0-10)
[2017-04-23 21:15] LABS: ACINETOBACTER BAUMANNII Not Detected (Negative); CANDIDA ALBICANS Not Detected (Negative); CANDIDA KRUSEI Not Detected (Negative); CANDIDA TROPICALIS Not Detected (Negative); ENTEROCOCCUS Not Detected (Negative); ESCHERICHIA COLI Not Detected (Negative); HAEMOPHILUS INFLUENZAE Not Detected (Negative); KLEBSIELLA OXYTOCA Not Detected (Negative); KPC-CARBAPENEM-RESISTANCE GENE Not Detected (Negative); PROTEUS Not Detected (Negative); PSEUDOMONAS AERUGINOSA Not Detected (Negative); SERRATIA MARCESANS Not Detected (Negative); STAPHYLOCOCCUS Not Detected (Negative); STAPHYLOCOCCUS AUREUS Not Detected (Negative); STREP AGALACTIAE (GROUP B) Not Detected (Negative); STREP PYOGENES (GROUP A) Not Detected (Negative); STREPTOCOCCUS Not Detected (Negative); mecA (METHICILLIN RESIST GENE Not Detected (Negative); vanA/B (VANCOMYCIN RESIST GENE Not Detected (Negative)
[2017-04-24 00:49] LABS: KLEBSIELLA PNEUMONIAE DETECTED (Negative)
[2017-04-24 06:17] LABS: HEMOGLOBIN 9.5 gm/dl (14.0-17.5)
[2017-04-24 06:18] LABS: RED BLOOD COUNT 3.58 M/UL (4.20-5.50); WHITE BLOOD COUNT 5.1 K/UL (4.5-11.0)
[2017-04-24 06:33] LABS: BUN/CREATININE RATIO 31 (0-10)
[2017-04-26 06:23] LABS: HEMOGLOBIN 9.2 gm/dl (14.0-17.5); RED BLOOD COUNT 3.47 M/UL (4.20-5.50); WHITE BLOOD COUNT 4.5 K/UL (4.5-11.0)
[2017-04-26 06:41] LABS: BUN/CREATININE RATIO 31 (0-10)
[2017-04-26] MEDS ORDERED: TYLENOL 325MG325 MG PO (16:40)
[2017-04-26] MEDS ORDERED: LEVAQUIN750 MG PO (16:41)
[2017-04-26] MEDS ORDERED: KEPPRA500 MG PO (16:42)
[2017-04-26] MEDS ORDERED: LOTRIMIN CREAM45 GM TOP (16:44)
== END 2017-04-26 18:27 | disposition home or self-care (01) | DRG 208 ==
LOC: ER1 05:08 → MED SURG 4 08:00 → CCU 08:00 → ZEROF 08:00 → CCU 15:29 → MED SURG 4 04-13 16:24
PROVIDERS: Emergency Medicine; Internal Medicine; Internal Medicine Infectious Disease; ADMIT Internal Medicine
PROC: 5A1945Z Respiratory Ventilation, 24-96 Consecutive Hours (ICD-10-PCS; principal; 2017-04-07)
PROC: 0BH17EZ Insertion of Endotracheal Airway into Trachea, Via Natural or Artificial Opening (ICD-10-PCS; 2017-04-07)
PROC: 05HN33Z Insertion of Infusion Device into Left Internal Jugular Vein, Percutaneous Approach (ICD-10-PCS; 2017-04-12)
PROC: B544ZZA Ultrasonography of Left Jugular Veins, Guidance (ICD-10-PCS; 2017-04-12)
DX: J96.01 Acute respiratory failure with hypoxia (principal); E10.10 Type 1 diabetes mellitus with ketoacidosis without coma; G92 Toxic encephalopathy; N17.9 Acute kidney failure, unspecified; I42.0 Dilated cardiomyopathy; E87.1 Hypo-osmolality and hyponatremia; J98.11 Atelectasis; T82.7XXA Infection and inflammatory reaction due to other cardiac and vascular devices, implants and grafts, initial encounter; T80.211A Bloodstream infection due to central venous catheter, initial encounter; M62.81 Muscle weakness (generalized); K59.00 Constipation, unspecified; E86.0 Dehydration; B18.2 Chronic viral hepatitis C; I48.0 Paroxysmal atrial fibrillation; F17.210 Nicotine dependence, cigarettes, uncomplicated; G40.909 Epilepsy, unspecified, not intractable, without status epilepticus; Z79.4 Long term (current) use of insulin; Z79.84 Long term (current) use of oral hypoglycemic drugs; Z91.14 Patient's other noncompliance with medication regimen; Z86.19 Personal history of other infectious and parasitic diseases; Z87.898 Personal history of other specified conditions; Z88.2 Allergy status to sulfonamides; Z79.01 Long term (current) use of anticoagulants; Z79.82 Long term (current) use of aspirin; Z79.899 Other long term (current) drug therapy; Z83.3 Family history of diabetes mellitus; E10.40 Type 1 diabetes mellitus with diabetic neuropathy, unspecified; E10.21 Type 1 diabetes mellitus with diabetic nephropathy; Z88.8 Allergy status to other drugs, medicaments and biological substances; G31.9 Degenerative disease of nervous system, unspecified; E87.5 Hyperkalemia; R00.0 Tachycardia, unspecified; R50.9 Fever, unspecified; D50.9 Iron deficiency anemia, unspecified; I10 Essential (primary) hypertension; Z91.11 Patient's noncompliance with dietary regimen; B35.4 Tinea corporis; B96.1 Klebsiella pneumoniae [K. pneumoniae] as the cause of diseases classified elsewhere
CPT/HCPCS: 31500; 36415; 36569; 36600; 51702; 70450; 71010; 80048; 80053; 80156; 80202; 80307; 81001; 82009; 82550; 82553; 82803; 82962; 83605; 83735; 83874; 84100; 84443; 84484; 85014; 85018; 85025; 85027; 85610; 86140; 87040; 87077; 87086; 87150; 87186; 93005; 94002; 94003; 96374; 96375; 97110; 97116; 97530; 99291; A4628; C1751; C9113; J0692; J1815; J1817; J1940; J1953; J2543; J3010; J3370; J7030; J7040; J7050; J7070; Q2039

== ENCOUNTER 2017-04-28 00:39 | Emergency (ER) | payer OTHER ==
[~2017-04-28 00:39] MED LIST changes: +KEPPRA500 MG PO; +LEVAQUIN750 MG PO; +LISINOPRIL20 MG PO; +LOTRIMIN CREAM45 GM TOP; +TYLENOL 325MG325 MG PO
[2017-04-28 03:12] LABS: HEMOGLOBIN 9.8 gm/dl (14.0-17.5); RED BLOOD COUNT 3.63 M/UL (4.20-5.50)
[2017-04-28 03:13] LABS: WHITE BLOOD COUNT 6.6 K/UL (4.5-11.0)
[2017-04-28 03:28] LABS: BUN/CREATININE RATIO 25 (0-10)
== END 2017-04-28 04:50 | disposition left against medical advice (07) ==
LOC: ER1 00:39
PROVIDERS: Family Medicine
DX: E11.65 Type 2 diabetes mellitus with hyperglycemia (principal); R06.02 Shortness of breath; F17.200 Nicotine dependence, unspecified, uncomplicated; Z88.2 Allergy status to sulfonamides
CPT/HCPCS: 80053; 81001; 82009; 82800; 82962; 85025; 96372; 99284; J1815; J7030